=== PATIENT | female | born 1990 | race Caucasian/White ===

== ENCOUNTER 2019-01-20 10:44 | Emergency (ER) | payer OTHER ==
[~2019-01-20] VITALS: Ht 160 cm; Wt 58.3 kg
[2019-01-20 12:05] VITALS: Ht 160 cm; Wt 58.3 kg
[2019-01-20] MEDS ORDERED: HYDROCODONE/APAP (5/325) TAB PO ONE (13:00)
[2019-01-20] MEDS ORDERED: IBUP-1542 PO (14:05)
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
== END 2019-01-20 14:23 | disposition home or self-care (01) ==
LOC: FTE 10:44
DX: S20.219A Contusion of unspecified front wall of thorax, initial encounter (principal); V49.49XA Driver injured in collision with other motor vehicles in traffic accident, initial encounter; Y92.9 Unspecified place or not applicable
CPT/HCPCS: 71046; Z7502; Z7610